=== PATIENT | male | born 1950 | race Caucasian/White ===

== ENCOUNTER 2018-03-25 06:55 | Emergency (ER) | payer OTHER ==
[~2018-03-25] VITALS: Ht 167.6 cm; Wt 86.2 kg
[~2018-03-25 06:55] MED LIST: ALLOPURINOL300 MG; ALLOPURINOL300 MG PO; AMOX1TAB12 PO; AMOX1TAB5 PO; ANTIVERT25 MG; ASPIR 8181 MG; BACLOFEN10 MG; CAPOTEN50 MG; CATAFLAM50 MG PO; CEFADROXIL500 MG; CELEBREX100 MG PO; CIPRO500 MG PO; CLARINEX5 MG/TAB PO; COLCRYS0.6 MG PO; COZAAR50 MG PO; DULCOLAX STOOL100 MG PO; FOLIC ACID1 MG PO; INDOMETHACIN50 MG PO; KETO10TA2 PO; LASIX20 MG; LASIX40 MG; LEVAQUIN750 MG PO; LOSARTAN-HCTZ1 EAC1; NORFLEX100 MG; NORFLEX30 MG/ML; ORPH100T PO; PEPCID20 MG PO; PREDNISONE10 MG PO; TESSALON200 MG PO; TORADOL10 MG; TRAMADOL HCL50 MG PO; TUSSI PRES-B L120 M1 PO; ULTRACET PO; ULTRAM50 MG PO; ZITHROMAX TRI-500 MG PO; ZYLOPRIM100 MG PO
[2018-03-25] MEDS ORDERED: PNEU16DI2 (07:16)
[2018-03-25] MEDS ORDERED: KETO10TA2 PO (10:32)
[2018-03-25] MEDS ORDERED: MEDROLPACK PO (10:32)
[2018-03-25] MEDS ORDERED: NORFLEX100MG PO (10:32)
== END 2018-03-25 11:20 | disposition home or self-care (01) ==
LOC: ER 06:55
DX: M79.642 Pain in left hand (principal); M79.641 Pain in right hand; M79.671 Pain in right foot

== ENCOUNTER 2018-05-29 06:49 | Emergency (ER) | payer OTHER ==
[~2018-05-29] VITALS: Ht 167.6 cm; Wt 86.2 kg
[~2018-05-29 06:49] MED LIST changes: +MEDROLPACK PO; +NORFLEX100MG PO; +PNEU16DI2
== END 2018-05-29 12:50 | disposition home or self-care (01) ==
LOC: ER 06:49
DX: M79.1 Myalgia (principal); M25.50 Pain in unspecified joint

== ENCOUNTER 2018-08-19 08:01 | Emergency (ER) | payer OTHER ==
[~2018-08-19] VITALS: Ht 167.6 cm; Wt 90.7 kg
== END 2018-08-19 09:01 | disposition home or self-care (01) ==
LOC: ER 08:01
DX: M54.89 Other dorsalgia (principal); M06.872 Other specified rheumatoid arthritis, left ankle and foot; M06.871 Other specified rheumatoid arthritis, right ankle and foot; M06.832 Other specified rheumatoid arthritis, left wrist; M06.831 Other specified rheumatoid arthritis, right wrist

== ENCOUNTER 2018-10-04 08:36 | Emergency (ER) | payer OTHER ==
[~2018-10-04] VITALS: Ht 167.6 cm; Wt 86.2 kg
== END 2018-10-04 14:19 | disposition home or self-care (01) ==
LOC: ER 08:36
DX: H92.01 Otalgia, right ear (principal)

== ENCOUNTER 2018-10-15 06:54 | Emergency (ER) | payer OTHER ==
[~2018-10-15] VITALS: Ht 167.6 cm; Wt 88.5 kg
[2018-10-15] MEDS ORDERED: MEDROLPACK PO (11:04)
[2018-10-15] MEDS ORDERED: AMOX1TAB5 PO (11:04)
== END 2018-10-15 11:38 | disposition home or self-care (01) ==
LOC: ER 06:54
DX: G89.11 Acute pain due to trauma (principal); G44.309 Post-traumatic headache, unspecified, not intractable; H92.01 Otalgia, right ear; R43.8 Other disturbances of smell and taste

== ENCOUNTER 2019-03-20 08:06 | Emergency (ER) | payer OTHER ==
[~2019-03-20] VITALS: Ht 167.6 cm; Wt 88.5 kg
[2019-03-20] MEDS ORDERED: VALSARTAN80 MG (08:26)
[2019-03-20] MEDS ORDERED: MECLIZINE HCL25 MG PO (12:50)
== END 2019-03-20 13:17 | disposition home or self-care (01) ==
LOC: ER 08:06
DX: H81.11 Benign paroxysmal vertigo, right ear (principal); H55.09 Other forms of nystagmus

== ENCOUNTER 2019-04-25 08:54 | Emergency (ER) | payer OTHER ==
[~2019-04-25] VITALS: Ht 167.6 cm; Wt 86.2 kg
[~2019-04-25 08:54] MED LIST changes: +MECLIZINE HCL25 MG PO; +VALSARTAN80 MG
== END 2019-04-25 10:49 | disposition home or self-care (01) ==
LOC: ER 08:54
DX: J04.0 Acute laryngitis (principal)

== ENCOUNTER 2021-02-09 08:45 | Emergency (ER) | payer OTHER ==
[~2021-02-09] VITALS: Ht 167.6 cm; Wt 93.0 kg
[2021-02-09] MEDS ORDERED: [UNRECOGNIZED DRUG - OTHER] PO (08:57)
[2021-02-09] MEDS ORDERED: DICLOFENAC POTA50 MG PO (11:53)
== END 2021-02-09 15:09 | disposition home or self-care (01) ==
LOC: ER 08:45
DX: M70.21 Olecranon bursitis, right elbow (principal); M13.841 Other specified arthritis, right hand; R60.0 Localized edema; Y93.89 Activity, other specified

== ENCOUNTER → 2021-04-26 08:15 | Outpatient (CLI) | payer OTHER ==
[~2021-04-26 08:15] MED LIST changes: +DICLOFENAC POTA50 MG PO; +LEVSIN/SL0.125 MG PO; +PEPCID AC20 MG PO; +[UNRECOGNIZED DRUG - OTHER] PO
== END | disposition home or self-care (01) ==
LOC: NUCLEAR 08:15
PROVIDERS: ATTEND Specialist
DX: K80.00 Calculus of gallbladder with acute cholecystitis without obstruction (principal)
CPT/HCPCS: 78227; A9537; J2805

== ENCOUNTER 2021-05-31 08:07 | Emergency (ER) | payer OTHER ==
[~2021-05-31] VITALS: Ht 167.6 cm; Wt 93.0 kg
[~2021-05-31 08:07] MED LIST changes: -LEVSIN/SL0.125 MG PO; -PEPCID AC20 MG PO
[2021-05-31] MEDS ORDERED: LEVSIN/SL0.125 MG PO (16:32)
[2021-05-31] MEDS ORDERED: KETO10TA2 PO (16:32)
[2021-05-31] MEDS ORDERED: PEPCID AC20 MG PO (16:32)
== END 2021-05-31 16:58 | disposition home or self-care (01) ==
LOC: ER 08:07
DX: K80.20 Calculus of gallbladder without cholecystitis without obstruction (principal); N20.0 Calculus of kidney

== ENCOUNTER 2021-10-26 09:41 | Emergency (ER) | payer OTHER ==
[~2021-10-26] VITALS: Ht 167.6 cm; Wt 95.3 kg
[~2021-10-26 09:41] MED LIST changes: +LEVSIN/SL0.125 MG PO; +PEPCID AC20 MG PO
[2021-10-26] MEDS ORDERED: BENICAR20 MG (10:14)
== END 2021-10-26 16:27 | disposition home or self-care (01) ==
LOC: ER 09:41 → CPU-OBS 09:43 → ER 16:27
DX: R07.89 Other chest pain (principal)

== ENCOUNTER 2021-11-24 07:44 | Outpatient (CLI) | payer OTHER ==
[~2021-11-24 07:44] MED LIST changes: +BENICAR20 MG
== END 2021-11-24 07:45 | disposition home or self-care (01) ==
LOC: NUCLEAR 07:44
PROVIDERS: ATTEND Internal Medicine Cardiovascular Disease
DX: I50.1 Left ventricular failure, unspecified (principal)

== ENCOUNTER 2021-11-24 08:03 | Outpatient (CLI) | payer OTHER | END 2021-11-24 08:04 | disposition home or self-care (01) | LOC: LAB 08:03 | PROVIDERS: ATTEND Internal Medicine | DX: U07.1 COVID-19 (principal); B34.1 Enterovirus infection, unspecified ==

== ENCOUNTER 2022-06-07 11:19 | Emergency (ER) | payer OTHER ==
[~2022-06-07] VITALS: Ht 167.6 cm; Wt 90.7 kg
[~2022-06-07 11:19] MED LIST changes: +OLMESARTAN MEDO20 MG PO
== END 2022-06-07 13:46 | disposition home or self-care (01) ==
LOC: ER 11:19
DX: S39.92XA Unspecified injury of lower back, initial encounter (principal); W18.30XA Fall on same level, unspecified, initial encounter; Y93.9 Activity, unspecified; Y92.019 Unspecified place in single-family (private) house as the place of occurrence of the external cause

== ENCOUNTER 2022-09-25 08:40 | Emergency (ER) | payer OTHER ==
[~2022-09-25] VITALS: Ht 167.6 cm; Wt 90.7 kg
== END 2022-09-25 14:00 | disposition home or self-care (01) ==
LOC: ER 08:40
DX: M89.8X6 Other specified disorders of bone, lower leg (principal); M19.072 Primary osteoarthritis, left ankle and foot; M19.90 Unspecified osteoarthritis, unspecified site; I10 Essential (primary) hypertension

== ENCOUNTER 2022-10-07 12:23 | Emergency (ER) | payer OTHER ==
[~2022-10-07] VITALS: Ht 167.6 cm; Wt 88.5 kg
[2022-10-07] MEDS ORDERED: COLCHICINE0.6 M1 PO (12:53)
[2022-10-07] MEDS ORDERED: SIMVASTATIN5 MG PO (12:53)
[2022-10-07] MEDS ORDERED: TRAMADOL HCL50 MG PO (12:53)
[2022-10-07] MEDS ORDERED: FAMOTIDINE20 MG PO (12:54)
[2022-10-07] MEDS ORDERED: METHYLPREDNISOLO4 MG PO (12:54)
== END 2022-10-07 15:18 | disposition home or self-care (01) ==
LOC: ER 12:23
DX: M25.562 Pain in left knee (principal); I10 Essential (primary) hypertension; M11.262 Other chondrocalcinosis, left knee

== ENCOUNTER 2022-10-25 11:45 | Outpatient (CLI) | payer OTHER ==
[~2022-10-25 11:45] MED LIST changes: +COLCHICINE0.6 M1 PO; +FAMOTIDINE20 MG PO; +METHYLPREDNISOLO4 MG PO; +SIMVASTATIN5 MG PO
== END 2022-10-25 11:55 | disposition home or self-care (01) ==
LOC: RAD 11:45
PROVIDERS: ATTEND Physical Medicine & Rehabilitation
DX: M25.572 Pain in left ankle and joints of left foot (principal); M25.472 Effusion, left ankle; R26.2 Difficulty in walking, not elsewhere classified

== ENCOUNTER 2022-12-05 12:04 | Outpatient (CLI) | payer OTHER | END 2022-12-05 13:34 | disposition home or self-care (01) | LOC: RAD 12:04 | PROVIDERS: ATTEND Physical Medicine & Rehabilitation | DX: M17.12 Unilateral primary osteoarthritis, left knee (principal); M25.562 Pain in left knee ==

== ENCOUNTER 2023-02-20 13:37 | Outpatient (CLI) | payer OTHER | END 2023-02-20 13:47 | disposition home or self-care (01) | LOC: RAD 13:37 | PROVIDERS: ATTEND Physical Medicine & Rehabilitation | DX: M54.2 Cervicalgia (principal); M25.511 Pain in right shoulder; M25.512 Pain in left shoulder ==

== ENCOUNTER 2023-04-23 09:13 | Emergency (ER) | payer OTHER ==
[~2023-04-23] VITALS: Ht 167.6 cm; Wt 88.5 kg
[2023-04-23] MEDS ORDERED: ATORVASTATIN CA20 MG PO (09:34)
[2023-04-23] MEDS ORDERED: ALLOPURINOL300 MG PO (09:34)
== END 2023-04-23 11:29 | disposition home or self-care (01) ==
LOC: ER 09:13
DX: L03.119 Cellulitis of unspecified part of limb (principal)

== ENCOUNTER 2023-05-07 11:50 | Outpatient (CLI) | payer OTHER ==
[~2023-05-07 11:50] MED LIST changes: +ATORVASTATIN CA20 MG PO
== END 2023-05-07 12:04 | disposition home or self-care (01) ==
LOC: MRI 11:50
PROVIDERS: ATTEND Physical Medicine & Rehabilitation
DX: M54.2 Cervicalgia (principal); M54.12 Radiculopathy, cervical region
CPT/HCPCS: 72141

== ENCOUNTER 2023-09-16 09:40 | Inpatient (IN) | payer OTHER ==
[~2023-09-16] VITALS: Ht 167.6 cm; Wt 88.5 kg
[2023-09-16] MEDS ORDERED: BENICAR20 MG (10:22)
[2023-09-16 12:38] LABS: HEMATOCRIT 39.6 % (39.0-48.0); HEMOGLOBIN 13.7 g/dL (13-16.00); MEAN CELL VOLUME 93.3 fL (80.0-100.00); MEAN CORPUSCULAR HEMOGLOBIN 32.3 pg (27.00-32.0); MEAN CORPUSCULAR HGB CONC 34.6 g/dl (32.0-36.0); PLATELET COUNT 577 K/uL (150-450); RED BLOOD COUNT 4.25 M/uL (4.00-6.00); RED CELL DISTRIBUTION WIDTH 12.2 % (11.5-14.5)
[2023-09-16 12:50] LABS: CALCIUM 10.1 mg/dL (8.5-10.1); CREATININE SERUM 1.26 mg/dL (0.70-1.30); GFR 56.26; POTASSIUM 4.04 mEq/L (3.5-5.1)
[2023-09-17 14:34] LABS: PH,URINE 5.5 (5.0-8.0); URINE APPEARANCE Clear; URINE BILIRRUBIN Negative (NEGATIVE); URINE BLOOD Small; URINE COLOR Yellow; URINE GLUCOSE Negative (NEGATIVE); URINE LEUKOCYTE Negative; URINE NITRATE Negative; URINE PROTEIN Trace (NEGATIVE); URINE UROBILINOGEN 0.2 E.U./dl
[2023-09-17 14:38] LABS: URINE BACTERIA 15.1 uL (0.0-1933); URINE EPITHELIAL CELLS 2.3 uL (0.0-38.8); URINE RBC 7.9 uL (0.0-20.8); URINE WBC 2.6 uL (0.0-23.2)
[2023-09-17 14:45] LABS: HEMATOCRIT 38.4 % (39.0-48.0); HEMOGLOBIN 13.4 g/dL (13-16.00); MEAN CELL VOLUME 92.9 fL (80.0-100.00); MEAN CORPUSCULAR HEMOGLOBIN 32.5 pg (27.00-32.0); MEAN CORPUSCULAR HGB CONC 34.9 g/dl (32.0-36.0); PLATELET COUNT 557 K/uL (150-450); RED BLOOD COUNT 4.14 M/uL (4.00-6.00); RED CELL DISTRIBUTION WIDTH 12.2 % (11.5-14.5)
[2023-09-17 14:50] LABS: ERYTHROCYTE SEDIMENTATION RATE 113 mm/hr
[2023-09-17 15:09] LABS: INR 1.09; PARTIAL THROMBOPLASTIN TIME 31.7 SECONDS (22.0-34.0); PROTHROMBIN TIME 11.4 SECONDS (9.0-11.5)
[2023-09-17 15:22] LABS: ALBUMIN 3.4 gm/dL (3.4-5.0); ALKALINE PHOSPHATASE 83 U/L (50-136); ALT/SGPT 21 U/L (12-78); ANION GAP 10 (10.0-20.0); AST/SGOT 13 U/L (15-37); BILIRUBIN TOTAL 0.33 mg/dL (0.3-1.2); BILIRUBIN,CONJUGATED < 0.10 mg/dL (0.0-0.2); BILIRUBIN,UNCONJUGATED 0.23 mg/dL (0.0-0.6); BLOOD UREA NITROGEN 21 mg/dL (7-18); BUN CREA RATIO 19 (7.0-25.0); C-REACTIVE PROTEIN 9.38 MG/DL (0.00-0.29); CALCIUM 9.4 mg/dL (8.5-10.1); CARBON DIOXIDE 26 mEq/L (21-32); CHLORIDE 104 mmol/L (98-107); CHOL HDL RATIO 3.1 (0-5.0); CHOLESTEROL 171 mg/dL (0-200); CREATININE SERUM 1.11 mg/dL (0.70-1.30); GFR 65.12; GLOBULINA 4.5 G/DL (2.4-3.5); GLUCOSE FASTING 121 mg/dL (65-100); HDL 55 mg/dl (40-60); LDL 98 mg/dl (0-130); OSMOLALITY SERUM 276 MOSM/KG (275-295); POTASSIUM 4.14 mEq/L (3.5-5.1); SODIUM 136 mmol/L (136-145); T4 FREE 1.31 NG/ML (0.76-1.46); TOTAL PROTEIN 7.9 gm/dL (6.4-8.2); TRIGLYCERIDES 92 mg/dL (0-150); VLDL 18 (0-39)
[2023-09-18 07:39] LABS: HEMATOCRIT 35.8 % (39.0-48.0); HEMOGLOBIN 12.4 g/dL (13-16.00); MEAN CELL VOLUME 92.4 fL (80.0-100.00); MEAN CORPUSCULAR HEMOGLOBIN 31.9 pg (27.00-32.0); MEAN CORPUSCULAR HGB CONC 34.6 g/dl (32.0-36.0); PLATELET COUNT 481 K/uL (150-450); RED BLOOD COUNT 3.88 M/uL (4.00-6.00); RED CELL DISTRIBUTION WIDTH 12.4 % (11.5-14.5)
[2023-09-18 08:15] LABS: CREATININE SERUM 0.91 mg/dL (0.70-1.30); GFR 81.9; MAGNESIUM 2.3 mg/dL (1.8-2.4); PHOSPHOROUS 2.9 mg/dL (2.5-4.9); POTASSIUM 4.11 mEq/L (3.5-5.1); URIC ACID 7.3 mg/dL (3.5-8.5)
[2023-09-20 14:12] LABS: HEMOGLOBIN 12.2 g/dL (13-16.00); MEAN CELL VOLUME 91.9 fL (80.0-100.00); MEAN CORPUSCULAR HGB CONC 34.8 g/dl (32.0-36.0); PLATELET COUNT 486 K/uL (150-450); RED BLOOD COUNT 3.81 M/uL (4.00-6.00); RED CELL DISTRIBUTION WIDTH 12.2 % (11.5-14.5)
[2023-09-20 14:18] LABS: ERYTHROCYTE SEDIMENTATION RATE 100 mm/hr
[2023-09-20 14:52] LABS: ALBUMIN 3.1 gm/dL (3.4-5.0); BILIRUBIN TOTAL 0.38 mg/dL (0.3-1.2); C-REACTIVE PROTEIN 4.22 MG/DL (0.00-0.29); CALCIUM 9.6 mg/dL (8.5-10.1); CREATININE SERUM 0.97 mg/dL (0.70-1.30); GFR 76.08; GLOBULINA 4.2 G/DL (2.4-3.5); MAGNESIUM 2.2 mg/dL (1.8-2.4); PHOSPHOROUS 3.6 mg/dL (2.5-4.9); POTASSIUM 4.5 mEq/L (3.5-5.1); TOTAL PROTEIN 7.3 gm/dL (6.4-8.2); URIC ACID 5.1 mg/dL (3.5-8.5)
== END 2023-09-23 14:54 | disposition home or self-care (01) | DRG 603 ==
LOC: ER 09:40 → MEDI 09-17 00:19
PROVIDERS: General Practice; Internal Medicine Infectious Disease; ADMIT Specialist; ATTEND Specialist
PROC: BP3CZZZ Magnetic Resonance Imaging (MRI) of Right Hand/Finger Joint (ICD-10-PCS; principal; 2023-09-17)
DX: L03.113 Cellulitis of right upper limb (principal); M65.841 Other synovitis and tenosynovitis, right hand; M10.9 Gout, unspecified; G56.01 Carpal tunnel syndrome, right upper limb; I25.10 Atherosclerotic heart disease of native coronary artery without angina pectoris; I11.9 Hypertensive heart disease without heart failure; G30.9 Alzheimer's disease, unspecified; F02.80 Dementia in other diseases classified elsewhere, unspecified severity, without behavioral disturbance, psychotic disturbance, mood disturbance, and anxiety
CPT/HCPCS: 73223

== ENCOUNTER 2023-11-20 11:28 | Outpatient (CLI) | payer OTHER | END 2023-11-20 11:30 | disposition home or self-care (01) | LOC: RAD 11:28 | PROVIDERS: ATTEND Specialist | DX: J45.998 Other asthma (principal) ==

== ENCOUNTER 2023-11-22 08:33 | Outpatient (CLI) | payer OTHER | END 2023-11-22 08:38 | disposition home or self-care (01) | LOC: SONOGRAMA 08:33 | PROVIDERS: ATTEND Specialist | DX: G56.00 Carpal tunnel syndrome, unspecified upper limb (principal) ==

== ENCOUNTER 2023-12-26 09:03 | Outpatient (CLI) | payer OTHER ==
[2023-12-26 11:04] LABS: ALBUMIN 3.8 gm/dL (3.4-5.0); BILIRUBIN TOTAL 0.63 mg/dL (0.3-1.2); CALCIUM 9.2 mg/dL (8.5-10.1); CREATININE SERUM 0.93 mg/dL (0.70-1.30); GFR 79.64; GLOBULINA 3.5 G/DL (2.4-3.5); POTASSIUM 4.05 mEq/L (3.5-5.1); TOTAL PROTEIN 7.3 gm/dL (6.4-8.2); URIC ACID 7.8 mg/dL (3.5-8.5)
== END 2023-12-26 09:04 | disposition home or self-care (01) ==
LOC: LAB 09:03
PROVIDERS: ATTEND Surgery Surgery of the Hand
DX: M10.9 Gout, unspecified (principal); I10 Essential (primary) hypertension

== ENCOUNTER 2023-12-26 09:59 | Outpatient (CLI) | payer OTHER | END 2023-12-26 10:03 | disposition home or self-care (01) | LOC: RAD 09:59 | PROVIDERS: ATTEND Surgery Surgery of the Hand | DX: M15.0 Primary generalized (osteo)arthritis (principal) ==

== ENCOUNTER 2024-01-07 09:04 | Outpatient (CLI) | payer OTHER ==
[2024-01-07 10:41] LABS: HEMATOCRIT 42.8 % (39.0-48.0); HEMOGLOBIN 14.7 g/dL (13-16.00); MEAN CELL VOLUME 90.4 fL (80.0-100.00); MEAN CORPUSCULAR HEMOGLOBIN 31.1 pg (27.00-32.0); MEAN CORPUSCULAR HGB CONC 34.4 g/dl (32.0-36.0); PLATELET COUNT 334 K/uL (150-450); RED BLOOD COUNT 4.73 M/uL (4.00-6.00); RED CELL DISTRIBUTION WIDTH 14.8 % (11.5-14.5)
[2024-01-07 11:05] LABS: CALCIUM 9.4 mg/dL (8.5-10.1); CREATININE SERUM 1.04 mg/dL (0.70-1.30); POTASSIUM 4.07 mEq/L (3.5-5.1)
[2024-01-07 11:21] LABS: PH,URINE 7.5 (5.0-8.0); URINE APPEARANCE Clear; URINE BILIRRUBIN Negative (NEGATIVE); URINE BLOOD Negative; URINE COLOR Yellow; URINE GLUCOSE Negative (NEGATIVE); URINE LEUKOCYTE Negative; URINE NITRATE Negative; URINE PROTEIN Negative (NEGATIVE); URINE UROBILINOGEN 0.2 E.U./dl
[2024-01-07 11:25] LABS: URINE BACTERIA 3.7 uL (0.0-1933); URINE EPITHELIAL CELLS 0.9 uL (0.0-38.8); URINE WBC 1.5 uL (0.0-23.2)
[2024-01-07 11:44] LABS: PARTIAL THROMBOPLASTIN TIME 28.3 SECONDS (22.0-34.0); PROTHROMBIN TIME 10.5 SECONDS (9.0-11.5)
== END 2024-01-07 09:11 | disposition home or self-care (01) ==
LOC: LAB 09:04
PROVIDERS: ATTEND Surgery Surgery of the Hand
DX: Z01.812 Encounter for preprocedural laboratory examination (principal); D68.9 Coagulation defect, unspecified

== ENCOUNTER 2024-12-25 09:37 | Emergency (ER) | payer OTHER ==
[~2024-12-25] VITALS: Ht 165.1 cm; Wt 88.5 kg
[2024-12-25 10:56] LABS: HEMATOCRIT 43.5 % (39.0-48.0); HEMOGLOBIN 15.1 g/dL (13-16.00); MEAN CELL VOLUME 96.1 fL (80.0-100.00); MEAN CORPUSCULAR HEMOGLOBIN 33.5 pg (27.00-32.0); MEAN CORPUSCULAR HGB CONC 34.8 g/dl (32.0-36.0); PLATELET COUNT 344 K/uL (150-450); RED BLOOD COUNT 4.53 M/uL (4.00-6.00); RED CELL DISTRIBUTION WIDTH 12.6 % (11.5-14.5)
[2024-12-25 12:10] LABS: ALBUMIN 4.1 gm/dL (3.4-5.0); BILIRUBIN TOTAL 0.53 mg/dL (0.3-1.2); BILIRUBIN,CONJUGATED 0.13 mg/dL (0.0-0.2); BILIRUBIN,UNCONJUGATED 0.4 mg/dL (0.0-0.6); CREATININE SERUM 1.12 mg/dL (0.70-1.30); GFR 64.09; POTASSIUM 4.12 mEq/L (3.5-5.1); TOTAL PROTEIN 7.9 gm/dL (6.4-8.2)
== END 2024-12-25 12:41 | disposition home or self-care (01) ==
LOC: ER 09:40
PROVIDERS: General Practice
DX: R53.81 Other malaise (principal); J44.9 Chronic obstructive pulmonary disease, unspecified; I10 Essential (primary) hypertension

== ENCOUNTER 2025-07-06 09:52 | Emergency (ER) | payer OTHER ==
[~2025-07-06] VITALS: Ht 167.6 cm; Wt 95.3 kg
[2025-07-06] MEDS ORDERED: FAMOTIDINE/PF 20 MG/2 ML VIAL IV ONE (11:00)
[2025-07-06] MEDS ORDERED: CEFTRIAXONE SODIUM 2,000 MG in 0.9 % SODIUM CHLORIDE 100 ML IV ONE (11:00)
[2025-07-06] MEDS ORDERED: KETOROLAC TROMETHAMINE 30 MG VIAL IU ONE (11:00)
[2025-07-06] MEDS ORDERED: FAMOTIDINE/PF 20 MG/2 ML VIAL ONE (11:01)
[2025-07-06] MEDS ORDERED: CEFTRIAXONE SODIUM 2,000 MG VIAL ONE (11:01)
[2025-07-06] MEDS ORDERED: KETOROLAC TROMETHAMINE 30 MG VIAL ONE (11:01)
[2025-07-06 11:43] LABS: BASO % 0.4 % (0.1-1.2); EOS # 0.10 (0.04-0.54); EOS % 0.9 % (0.7-7.0); LYMPH # 2.37 (1.18-3.74); LYMPH % 21.5 % (19.3-53.1); MEAN PLATELET VOLUME 9.10 fl (9.4-12.4); MONO # 1.18 (0.24-0.82); MONO % 10.7 % (4.7-12.5); NEUT # 7.29 (1.56-6.13); NEUT % 66.0 % (34.0-71.1); RED CELL DISTRIBUTION WIDTH 11.9 % (11.6-14.4)
[2025-07-06 12:00] LABS: ERYTHROCYTE SEDIMENTATION RATE 48 mm/hr (0-20)
[2025-07-06 12:10] LABS: ALT/SGPT 20.0 U/L (12-78); AST/SGOT 12.0 U/L (15-37); BILIRUBIN TOTAL 0.56 mg/dL (0.3-1.2); BUN CREA RATIO 14.0 (7.0-25.0); CREATININE SERUM 1.0 mg/dL (0.70-1.30); GFR 73.04; GLOBULINA 4.1 G/DL (2.4-3.5); GLUCOSE FASTING 100.0 mg/dL (65-100); OSMOLALITY SERUM 284.0 MOSM/KG (275-295)
[2025-07-06] MEDS ORDERED: AMOX1TAB5 PO (15:01)
[2025-07-06] MEDS ORDERED: PEPCID AC20 MG PO (15:01)
[2025-07-06] MEDS ORDERED: IBU600 MG PO (15:01)
== END 2025-07-06 15:34 | disposition home or self-care (01) ==
LOC: ER 09:52
PROVIDERS: General Practice
DX: L03.114 Cellulitis of left upper limb (principal); I10 Essential (primary) hypertension
CPT/HCPCS: 36415; 73130; 93005; 93971; 96365; 99284; J0696; J1885; J3490